=== PATIENT | male | born 1930 | race Caucasian/White ===

== ENCOUNTER 2021-09-15 09:55 | Inpatient (IN) | payer OTHER ==
[~2021-09-15] VITALS: Ht 182.9 cm; Wt 68.9 kg
[2021-09-15 15:09] VITALS: BP_SYST 158
--- NOTE | 2021-09-15 15:55 | NUR ---
CONSULTATION PAGED/CALLED Reason for Consultation: [] ANEMIA Person Who was Notified: [] DR MILLER Consulting Physician: [] DR MILLER Assembler Unit Specialty: [] ONCO/BAKARI Ordering Physician: [] DR ENCARNACION
[2021-09-15 16:08] LABS: BASOPHILS % (AUTO) 0.4 % (0.0-2.0); EOSINOPHILS # (AUTO) 0.1 K/uL (0.0-0.4); EOSINOPHILS % (AUTO) 1.3 % (0.0-4.0); MEAN CORPUSCULAR HEMOGLOBIN 29 pg (27-31); MEAN CORPUSCULAR HGB CONC 33 % (32-36); MEAN CORPUSCULAR VOLUME 88 fL (79.0-98.0); MONOCYTES # (AUTO) 0.8 K/uL (0.0-1.0); MONOCYTES % (AUTO) 16.2 % (1.7-9.3); NEUTROPHILS # (AUTO) 3.3 K/uL (1.8-7.7); NEUTROPHILS % (AUTO) 63.1 % (40.0-70.0); PLATELET COUNT (AUTO) 145 K/uL (130-430); RED CELL DISTRIBUTION WIDTH 20.4 % (9.0-15.0); WHITE BLOOD COUNT (AUTO) 5.2 K/uL (4.8-10.8)
[2021-09-15 16:17] LABS: RED BLOOD CELL COUNT(AUTO) 1.92 MIL/uL (4.2-6.2)
[2021-09-15 16:18] LABS: HEMATOCRIT 16.9 % (36-54); HEMOGLOBIN 5.6 g/dL (14.0-18.0)
[2021-09-15 16:19] LABS: ANION GAP 8 (5-15); CALCIUM 8.7 mg/dL (8.4-11.0); CHLORIDE 109 mmol/L (98-107); CREATININE 2.41 mg/dL (0.55-1.30); GLUCOSE 146 mg/dL (70-99); POTASSIUM 4.5 mmol/L (3.5-5.1); SODIUM SERUM 143 mmol/L (136-145); UREA NITROGEN, BLOOD 76 mg/dL (8-21)
[2021-09-15] MEDS ORDERED: ACETAMINOPHEN 325 MG TABLET PO PRN (16:30)
--- NOTE | 2021-09-15 18:18 | NUR ---
ADMISSION: The patient, BAM WILEY, 89 y/o, M admitted by Mariusz ENCARNACION MD, was given written information regarding hospital policies, unit procedures and contact persons. Valuables were checked and PLACED AT BEDSIDE DRAWER. .
[2021-09-15] MEDS ORDERED: FURO-149 PO (19:07)
[2021-09-15] MEDS ORDERED: SIMV20TA2 PO (19:07)
[2021-09-15] MEDS ORDERED: MECO10005 PO (19:07)
[2021-09-15] MEDS ORDERED: ALLO100T PO (19:07)
[2021-09-15] MEDS ORDERED: POTA-197 PO (19:07)
[2021-09-15] MEDS ORDERED: SITA25TA3 PO (19:07)
[2021-09-15] MEDS ORDERED: ISOS30TA85 PO (19:07)
[2021-09-15] MEDS ORDERED: TAMS-11 PO (19:07)
[2021-09-15] MEDS ORDERED: SODI325T PO (19:07)
[2021-09-15] MEDS ORDERED: HYDR-4037 PO (19:07)
[2021-09-15] MEDS ORDERED: LOSA50TA3 PO (19:07)
[2021-09-15] MEDS ORDERED: FINA5TAB11 PO (19:07)
[2021-09-15] MEDS ORDERED: RIVA10TA PO (19:07)
[2021-09-15] MEDS ORDERED: ASPI-1393 PO (19:07)
[2021-09-15] MEDS ORDERED: COR3.125 PO (19:07)
--- NOTE | 2021-09-15 19:27 | NUR ---
TELEPHONE ORDER RECEIVED FROM ELIANE ADAIR, MEDICATION RECONCILIATION DONE.
--- NOTE | 2021-09-15 19:30 | NUR ---
RCEIVED REPORT ON PATIENT FROM MAR, RN, ASSUMED CARE AND STARTED ASSESSMENT.
--- NOTE | 2021-09-15 19:30 | NUR ---
ENDORSED TO SPORTS COORDINATOR NURSE, 2 UNITS OF BLOOD PRODUCT IS READY TO BE TRANSFUSE.
[2021-09-15 20:00] VITALS: BP_SYST 155
[2021-09-15] MEDS: LOSARTAN POTASSIUM 50 MG TABLET (COZAAR) PO SCH (21:00)
[2021-09-15] MEDS: SIMVASTATIN 20 MG TABLET PO SCH (22:31)
[2021-09-15] MEDS: ISOSORBIDE MONONITRATE 30 MG TAB.ER.24H PO SCH (22:31)
[2021-09-15] MEDS: hydrALAZINE HCL 10 MG TABLET PO SCH (22:32)
[2021-09-15] MEDS: CARVEDILOL 3.125 MG TABLET (COREG) PO SCH (22:33)
[2021-09-15] MEDS: TAMSULOSIN HCL 0.4 MG CAP PO SCH (22:34)
--- NOTE | 2021-09-16 01:15 | NUR ---
STARTED TO TRANSFUSE ONE UNIT OF PRBCS. STAYED WITH PT FOR 15 AT THE BEDSIDE TO ASSURE NO IMMEDIATE REACTION. NO INITIAL REACTION NOTED. WILL CONTINUE TO MONITOR AND ASSESS FOR SAFETY AND COMFORT.
--- NOTE | 2021-09-16 04:25 | NUR ---
COMPLETED TRANSFUSING ONE UNIT PRBC'S WITHOUT INCIDENT OR REACTION. WILL CONTINUE TO MONITOR AND ASSESS FOR SAFETY AND COMFORT.
[2021-09-16 06:49] LABS: INR 1.2 (0.80-1.20); PROTHROMBIN TIME 11.6 SECS (9.5-12.5)
[2021-09-16 07:07] LABS: ANION GAP 7 (5-15); CALCIUM 8.3 mg/dL (8.4-11.0); CHLORIDE 110 mmol/L (98-107); CREATININE 2.17 mg/dL (0.55-1.30); GLUCOSE 108 mg/dL (70-99); POTASSIUM 4.3 mmol/L (3.5-5.1); SODIUM SERUM 142 mmol/L (136-145); UREA NITROGEN, BLOOD 70 mg/dL (8-21)
--- NOTE | 2021-09-16 07:13 | NUR ---
REPORT GIVEN TO ARIN MCKEON, AND CARE WAS TURNED OVER TO HIM.
[2021-09-16 08:00] VITALS: BP_SYST 185
[2021-09-16 08:02] LABS: BASOPHILS % (AUTO) 0.5 % (0.0-2.0); EOSINOPHILS # (AUTO) 0.1 K/uL (0.0-0.4); LYMPHOCYTES % (AUTO) 21.8 % (20.5-51.5); MEAN CORPUSCULAR HEMOGLOBIN 29 pg (27-31); MEAN CORPUSCULAR HGB CONC 34 % (32-36); MEAN CORPUSCULAR VOLUME 86 fL (79.0-98.0); MONOCYTES # (AUTO) 0.7 K/uL (0.0-1.0); MONOCYTES % (AUTO) 15.4 % (1.7-9.3); NEUTROPHILS # (AUTO) 2.8 K/uL (1.8-7.7); NEUTROPHILS % (AUTO) 60.3 % (40.0-70.0); PLATELET COUNT (AUTO) 128 K/uL (130-430); RED BLOOD CELL COUNT(AUTO) 2.11 MIL/uL (4.2-6.2); WHITE BLOOD COUNT (AUTO) 4.7 K/uL (4.8-10.8)
[2021-09-16 08:39] LABS: HEMATOCRIT 18.1 % (36-54); HEMOGLOBIN 6.1 g/dL (14.0-18.0)
[2021-09-16 08:41] LABS: RED CELL DISTRIBUTION WIDTH 20.5 % (9.0-15.0)
--- NOTE | 2021-09-16 08:42 | NUR ---
PAGED PAGED NESSA ALCALA AT [phone] SPOKE WITH KEIKO.
[2021-09-16] MEDS: POTASSIUM CHLORIDE 10 MEQ TAB.PRT.SR PO SCH (11:41)
[2021-09-16] MEDS: CARVEDILOL 3.125 MG TABLET (COREG) PO SCH ×2 (11:41→21:00)
[2021-09-16] MEDS: ALLOPURINOL 100 MG TABLET (ZYLOPRIM) PO SCH (11:42)
[2021-09-16] MEDS: FUROSEMIDE 40 MG TABLET PO SCH (11:42)
[2021-09-16] MEDS: FINASTERIDE 5 MG TABLET (PROSCAR) PO SCH (11:42)
[2021-09-16] MEDS: ASPIRIN 81 MG TABLET(ECOTRIN) PO SCH (11:43)
[2021-09-16] MEDS: LOSARTAN POTASSIUM 50 MG TABLET (COZAAR) PO SCH ×2 (11:50→21:29)
[2021-09-16] MEDS: hydrALAZINE HCL 10 MG TABLET PO SCH ×3 (11:51→21:28)
[2021-09-16 12:00] VITALS: BP_SYST 150
[2021-09-16] MEDS ORDERED: EPOETIN ALFA-EPBX 20,000 UNITS/ML VIAL SUBCUT ONE (12:45)
[2021-09-16] MEDS: SODIUM BICARBONATE 650 MG TABLET PO SCH ×2 (14:25→21:28)
[2021-09-16 16:00] VITALS: BP_SYST 165
[2021-09-16] MEDS ORDERED: FOLIC ACID 1 MG TABLET PO ONE (17:00)
[2021-09-16] MEDS ORDERED: SOD FERRIC GLUC COMPLEX/SUC 125 MG in NS 100 ML IV SCH (18:00)
[2021-09-16 20:00] VITALS: BP_SYST 183
[2021-09-16] MEDS: SIMVASTATIN 20 MG TABLET PO SCH (21:28)
[2021-09-16] MEDS: ISOSORBIDE MONONITRATE 30 MG TAB.ER.24H PO SCH (21:28)
[2021-09-16] MEDS: TAMSULOSIN HCL 0.4 MG CAP PO SCH (21:29)
[2021-09-17] VITALS: BP_SYST 165
[2021-09-17] MEDS ORDERED: hydrALAZINE HCL 20 MG/ML VIAL IVP PRN (01:15)
--- NOTE | 2021-09-17 01:43 | NUR ---
PT STARTED ON BLOOD TRANSFUSION, DENIES ANY PAIN, NO S/S OF DISTRESS OR DISCOMFORT NOTED, NO ADVERSE REACTION NOTED, WILL CONTINUE TO MONITOR.
[2021-09-17 04:00] VITALS: BP_SYST 150
[2021-09-17 06:44] LABS: BASOPHILS % (AUTO) 0.3 % (0.0-2.0); EOSINOPHILS % (AUTO) 0.7 % (0.0-4.0); HEMATOCRIT 23.4 % (36-54); LYMPHOCYTES # (AUTO) 0.8 K/uL (1.0-5.5); LYMPHOCYTES % (AUTO) 11.8 % (20.5-51.5); MEAN CORPUSCULAR HEMOGLOBIN 29 pg (27-31); MEAN CORPUSCULAR HGB CONC 34 % (32-36); MEAN CORPUSCULAR VOLUME 85 fL (79.0-98.0); MONOCYTES # (AUTO) 0.9 K/uL (0.0-1.0); MONOCYTES % (AUTO) 12.6 % (1.7-9.3); NEUTROPHILS # (AUTO) 5.1 K/uL (1.8-7.7); NEUTROPHILS % (AUTO) 74.6 % (40.0-70.0); PLATELET COUNT (AUTO) 138 K/uL (130-430); RED BLOOD CELL COUNT(AUTO) 2.76 MIL/uL (4.2-6.2); RED CELL DISTRIBUTION WIDTH 20.1 % (9.0-15.0); RETICULOCYTE COUNT 1.2 % (0.5-1.5); WHITE BLOOD COUNT (AUTO) 6.8 K/uL (4.8-10.8)
[2021-09-17 07:06] LABS: TOTAL IRON BIND. CAPACITY 270 ug/dL (250-450)
--- NOTE | 2021-09-17 07:10 | NUR ---
OPENING NOTE RECEIVED PATIENT IN BED, RESPIRATIONS EVEN, NON LABORED, BED IN LOW AND LOCKED POSITION, CALL LIGHT WITHIN REACH, BED ALARM ON.
[2021-09-17 07:13] LABS: ANION GAP 9 (5-15); CALCIUM 8.7 mg/dL (8.4-11.0); CHLORIDE 108 mmol/L (98-107); CREATININE 2.15 mg/dL (0.55-1.30); GLUCOSE 122 mg/dL (70-99); POTASSIUM 4.2 mmol/L (3.5-5.1); SODIUM SERUM 141 mmol/L (136-145); UREA NITROGEN, BLOOD 62 mg/dL (8-21)
[2021-09-17 08:00] VITALS: BP_SYST 164
[2021-09-17] MEDS ORDERED: FOLIC ACID 1 MG TABLET PO SCH (09:00)
[2021-09-17] MEDS: ALLOPURINOL 100 MG TABLET (ZYLOPRIM) PO SCH (09:49)
[2021-09-17] MEDS: LOSARTAN POTASSIUM 50 MG TABLET (COZAAR) PO SCH (09:50)
[2021-09-17] MEDS: FINASTERIDE 5 MG TABLET (PROSCAR) PO SCH (09:50)
--- NOTE | 2021-09-17 09:50 | NUR ---
NURSE NOTES PROVIDED MEDICATIONS, PATIENT DENIES ANY PAIN OR DISCOMFORT.
[2021-09-17] MEDS: ASPIRIN 81 MG TABLET(ECOTRIN) PO SCH (09:51)
[2021-09-17] MEDS: POTASSIUM CHLORIDE 10 MEQ TAB.PRT.SR PO SCH (09:51)
[2021-09-17] MEDS: SODIUM BICARBONATE 650 MG TABLET PO SCH (09:51)
[2021-09-17] MEDS: hydrALAZINE HCL 10 MG TABLET PO SCH (09:52)
[2021-09-17] MEDS: CARVEDILOL 3.125 MG TABLET (COREG) PO SCH (09:52)
[2021-09-17] MEDS: FUROSEMIDE 40 MG TABLET PO SCH (09:53)
[2021-09-17 12:00] VITALS: BP_SYST 123; BP_SYST 150
--- NOTE | 2021-09-17 12:00 | NUR ---
NURSE NOTE PATIENT IN BED, RESPIRATIONS EVEN, NON LABORED, BED IN LOW AND LOCKED POSITION CALL LIGHT WITHIN REACH, PROVIDED LUNCH
[2021-09-17 12:13] VITALS: BP_SYST 123
--- NOTE | 2021-09-17 13:15 | NUR ---
D/C Patient Patient given medication reconciliation form and D/C instructions. Exit Care provided. Patient verbalized understanding. MD discussed with patient the results and treatment provided. Ambulatory with steady gait for discharge to home. Patient in stable condition, ID band removed. IV catheter removed, intact and dressing applied, no active bleeding. Patient educated on pain management. All belongings sent with patient. Patient taken via wheelchair to awaiting car
[2021-09-18 08:06] LABS: FOLATE (FOLIC ACID) 15.8 ng/mL (>3.0)
== END 2021-09-17 13:15 | disposition home or self-care (01) | DRG 812 ==
LOC: SMU 13:58
PROVIDERS: ADMIT Internal Medicine; ATTEND Internal Medicine
PROC: 30233N1 Transfusion of Nonautologous Red Blood Cells into Peripheral Vein, Percutaneous Approach (ICD-10-PCS; principal; 2021-09-16)
DX: D64.9 Anemia, unspecified (principal); N18.32 Chronic kidney disease, stage 3b; Z79.899 Other long term (current) drug therapy; Z79.82 Long term (current) use of aspirin
CPT/HCPCS: 36415; 80048; 82607; 82728; 82746; 82962; 83540; 83550; 85025; 85044; 85610-TC; 85730-TC; 86886; 86900; 86901; 86920; J0360; J2916; P9021; Q5106

== ENCOUNTER 2022-04-23 13:14 | Inpatient (IN) | payer OTHER ==
[~2022-04-23] VITALS: Ht 182.9 cm; Wt 68.9 kg
[~2022-04-23 13:14] MED LIST: ALLO100T PO; ASPI-1393 PO; COR3.125 PO; FINA5TAB11 PO; FURO-149 PO; HYDR-4037 PO; ISOS30TA85 PO; LOSA50TA3 PO; MECO10005 PO; POTA-197 PO; RIVA10TA PO; SIMV-343 PO; SITA25TA3 PO; SODI325T PO; TAMS-11 PO
[2022-04-23 13:18] VITALS: BP_SYST 160
--- NOTE | 2022-04-23 13:53 | NUR ---
covid swab collected
[2022-04-23 14:16] LABS: ANION GAP 10 (5-15); BASOPHILS % (AUTO) 0.7 % (0.0-2.0); CALCIUM 8.6 mg/dL (8.4-11.0); CHLORIDE 111 mmol/L (98-107); CREATININE 2.65 mg/dL (0.55-1.30); EOSINOPHILS # (AUTO) 0.1 K/uL (0.0-0.4); EOSINOPHILS % (AUTO) 1.2 % (0.0-4.0); GLUCOSE 128 mg/dL (70-99); HEMATOCRIT 23.4 % (36-54); HEMOGLOBIN 7.5 g/dL (14.0-18.0); LYMPHOCYTES # (AUTO) 0.7 K/uL (1.0-5.5); LYMPHOCYTES % (AUTO) 14.2 % (20.5-51.5); MEAN CORPUSCULAR HEMOGLOBIN 29 pg (27-31); MEAN CORPUSCULAR HGB CONC 32 % (32-36); MEAN CORPUSCULAR VOLUME 90 fL (79.0-98.0); MONOCYTES # (AUTO) 0.7 K/uL (0.0-1.0); MONOCYTES % (AUTO) 13.3 % (1.7-9.3); NEUTROPHILS # (AUTO) 3.6 K/uL (1.8-7.7); NEUTROPHILS % (AUTO) 70.6 % (40.0-70.0); PLATELET COUNT (AUTO) 179 K/uL (130-430); RED BLOOD CELL COUNT(AUTO) 2.61 MIL/uL (4.2-6.2); RED CELL DISTRIBUTION WIDTH 16.2 % (9.0-15.0); UREA NITROGEN, BLOOD 80 mg/dL (8-21)
[2022-04-23 14:21] LABS: ALANINE AMINOTRANSFERASE 23 U/L (12-78); ALBUMIN 2.7 g/dL (3.4-4.8); ASPARTATE AMINOTRANSFERASE 26 U/L (10-37); TOTAL BILIRUBIN 0.3 mg/dL (0.0-1.0)
--- NOTE | 2022-04-23 14:27 | NUR ---
Patient to ER bed 08 to gown for evaluation. Side rails up. Report given to Vito HINKLE .
[2022-04-23 15:01] LABS: AMYLASE 37 U/L (0-100); LIPASE 195 U/L (73-393)
--- NOTE | 2022-04-23 16:03 | NUR ---
Took over pts care. Pt alert and oriented x4, VSS, no signs of acute distress. Cardiogist at bedside speaking with pt and daughter.
[2022-04-23 16:17] LABS: INR 1.2 (0.80-1.20); PROTHROMBIN TIME 11.7 SECS (9.5-12.5)
[2022-04-23] MEDS ORDERED: NACL 0.9% 1,000 ML IV ONE (16:45)
--- NOTE | 2022-04-23 23:34 | NUR ---
Admission Note Received patient from ER with diagnosis of PNA, RENAL FAILURE. Initial Plan of Care discussed-patient verbalized understanding. Oriented to room, call light, pain management and safety.
--- NOTE | 2022-04-23 23:46 | NUR ---
Patient will be admitted to care of NIKKI HINKLE. Admitted to unit. Will go to room 104A. Belongings list completed. Complete and up to date summary report printed. SBAR report to be given at bedside with opportunity for questions.
[2022-04-23 23:55] VITALS: BP_SYST 173
[2022-04-24] MEDS ORDERED: hydrALAZINE HCL 20 MG/ML VIAL IVP PRN (01:00)
[2022-04-24 01:19] LABS: BILIRUBIN,URINE NEGATIVE (NEGATIVE); CLARITY/URINE CLEAR (CLEAR); COLOR,URINE YELLOW (YELLOW); GLUCOSE,URINE NEGATIVE (NEGATIVE); KETONES,URINE NEGATIVE (NEGATIVE); LEUKOCYTE ESTERASE ,URINE NEGATIVE (NEGATIVE); NITRITE, URINE NEGATIVE (NEGATIVE); PROTEIN URINE 3+ (NEGATIVE); UROBILINOGEN,URINE 0.2 (0.2-1.0)
--- NOTE | 2022-04-24 01:30 | NUR ---
BLOOD TRANSFUSION INITIATED BLOOD TRANSFUSION AT THIS TIME. WILL MONITOR.
[2022-04-24 01:38] LABS: BLOOD, URINE TRACE (NEGATIVE)
[2022-04-24 01:42] LABS: BACTERIA,URINE FEW /HPF (None Seen); MUCUS,URINE None Seen /LPF (None Seen); URINE SULFO SALICYLIC ACID TRACE (NEGATIVE); WBC,URINE 0-3 /HPF (0-3)
--- NOTE | 2022-04-24 04:30 | NUR ---
BLOOD TRANSFUSION FINISHED PATIENT TOLERATED WELL. NO SIGNS OF ADVERSE REACTIONS. ALL NEEDS MET. WILL MONITOR.
[2022-04-24 05:00] VITALS: BP_SYST 158
--- NOTE | 2022-04-24 06:26 | NUR ---
CLOSING NOTE PATIENT ON CHAIR BY BEDSIDE. NO S/S OF ACUTE DISTRESS. BREATHING EVEN AND UNLABORED. IV SITE PATENT, NO SIGNS OF INFILTRATION OR INFECTION NOTED. ALL NEEDS MET THROUGHOUT SHIFT. FALL, SAFETY PRECAUTIONS MAINTAINED THROUGHOUT SHIFT. WILL CONTINUE TO MONITOR UNTIL PATIENT CARE IS ENDORSED TO ONCOMING DAYSHIFT NURSE.
[2022-04-24 07:53] VITALS: BP_SYST 156
[2022-04-24 08:02] LABS: ALANINE AMINOTRANSFERASE 29 U/L (12-78); ALBUMIN 2.4 g/dL (3.4-4.8); ANION GAP 13 (5-15); ASPARTATE AMINOTRANSFERASE 25 U/L (10-37); CALCIUM 8.7 mg/dL (8.4-11.0); CHLORIDE 112 mmol/L (98-107); CREATININE 2.57 mg/dL (0.55-1.30); GLUCOSE 117 mg/dL (70-99); TOTAL BILIRUBIN 0.6 mg/dL (0.0-1.0); UREA NITROGEN, BLOOD 78 mg/dL (8-21)
[2022-04-24 08:09] LABS: BASOPHILS % (AUTO) 0.5 % (0.0-2.0); EOSINOPHILS % (AUTO) 0.8 % (0.0-4.0); HEMOGLOBIN 9.3 g/dL (14.0-18.0); LYMPHOCYTES # (AUTO) 0.6 K/uL (1.0-5.5); LYMPHOCYTES % (AUTO) 12.7 % (20.5-51.5); MEAN CORPUSCULAR HEMOGLOBIN 29 pg (27-31); MEAN CORPUSCULAR HGB CONC 33 % (32-36); MEAN CORPUSCULAR VOLUME 88 fL (79.0-98.0); MONOCYTES # (AUTO) 0.7 K/uL (0.0-1.0); MONOCYTES % (AUTO) 14.3 % (1.7-9.3); NEUTROPHILS # (AUTO) 3.7 K/uL (1.8-7.7); NEUTROPHILS % (AUTO) 71.7 % (40.0-70.0); PLATELET COUNT (AUTO) 165 K/uL (130-430); RED BLOOD CELL COUNT(AUTO) 3.17 MIL/uL (4.2-6.2); RED CELL DISTRIBUTION WIDTH 15.6 % (9.0-15.0); WHITE BLOOD COUNT (AUTO) 5.1 K/uL (4.8-10.8)
[2022-04-24 11:35] VITALS: BP_SYST 155
--- NOTE | 2022-04-24 13:00 | NUR ---
DR Aston MILLER WAS HERE, REMINDED OF THE PT'S ADMISSION. SAID HE WILL LOOK AT IT.
--- NOTE | 2022-04-24 15:15 | NUR ---
CALLED DR MILLER. REMINDED MD TO DO MED REC AND TO CHECK IF PT NEEDS ABX.
[2022-04-24 15:27] VITALS: BP_SYST 151
[2022-04-24] MEDS ORDERED: CARVEDILOL 3.125 MG TABLET (COREG) PO ONE (15:30)
[2022-04-24] MEDS ORDERED: ASPIRIN 81 MG TABLET(ECOTRIN) PO ONE (15:30)
[2022-04-24] MEDS ORDERED: LOSARTAN POTASSIUM 50 MG TABLET (COZAAR) PO ONE (15:45)
[2022-04-24] MEDS ORDERED: hydrALAZINE HCL 10 MG TABLET PO ONE (15:45)
[2022-04-24] MEDS ORDERED: ALLOPURINOL 100 MG TABLET (ZYLOPRIM) PO ONE (15:45)
[2022-04-24] MEDS ORDERED: RIVAROXABAN 10 MG TABLET PO ONE (15:45)
[2022-04-24] MEDS ORDERED: FINASTERIDE 5 MG TABLET (PROSCAR) PO ONE (15:45)
--- NOTE | 2022-04-24 15:49 | NUR ---
CONSULTATION PAGED/CALLED Reason for Consultation: cards Person Who was Notified: Ca Traore Consulting Physician: gautam delacruz Ordering Physician: froylan shipley
--- NOTE | 2022-04-24 16:12 | NUR ---
CONSULTATION PAGED/CALLED Reason for Consultation: ID Person Who was Notified: Emil Consulting Physician: giorgio garay Ordering Physician: froylan shipley
--- NOTE | 2022-04-24 16:13 | NUR ---
CONSULTATION PAGED/CALLED Reason for Consultation: pulm Person Who was Notified: malina Consulting Physician: shyanne lebron ( dr Sampson is covering) Ordering Physician: froylan shipley
[2022-04-24] MEDS ORDERED: FUROSEMIDE 40 MG/4 ML VIAL IVP ONE (18:15)
[2022-04-24] MEDS: cefTRIAXone 1 GM in D5W 50 ML IV SCH (18:25)
--- NOTE | 2022-04-24 18:55 | NUR ---
PM MEDS ALL GIVEN,ASSISTED PT WITH DINNER AT ABT 50%. IV ABX STARTED.
--- NOTE | 2022-04-24 19:21 | NUR ---
pt has been stable the whole shift, no fever, no resp distress no c/o pain. home meds reconcile by md, abx and lasix given. endorsed to night nurse.
--- NOTE | 2022-04-24 19:21 | NUR ---
OPENING NOTE REPORT RECEIVED FROM DAYSUTFT NURSE. PATIENT RECEIVED LYING IN BED, AWAKE, NO S/S OF ACUTE DISTRESS. BREATHING EVEN AND UNLABORED. HOB RAISED, NASAL CANULA ATTACHED PROPERLY, ON 2L OF OXYGEN. IV SITE PATENT, NO SIGNS OF INFILTRATION OR INFECTION NOTED. [place] ATTACHED, SECURED, AND DRAINING BY GRAVITY. CALL LIGHT WITH PATIENT. BED ALARM ON. BED IS LOCKED AND AT LOWEST POSITION. WILL CONTINUE TO MONITOR.
[2022-04-24 20:00] VITALS: BP_SYST 151
[2022-04-24] MEDS: ISOSORBIDE MONONITRATE 30 MG TAB.ER.24H PO SCH (20:14)
[2022-04-24] MEDS: hydrALAZINE HCL 10 MG TABLET PO SCH (20:14)
[2022-04-24] MEDS: CARVEDILOL 3.125 MG TABLET (COREG) PO SCH (20:14)
[2022-04-24] MEDS: TAMSULOSIN HCL 0.4 MG CAP PO SCH (20:15)
[2022-04-24] MEDS: LOSARTAN POTASSIUM 50 MG TABLET (COZAAR) PO SCH (20:15)
[2022-04-24] MEDS: RIVAROXABAN 10 MG TABLET PO SCH (20:15)
[2022-04-24] MEDS ORDERED: SIMVASTATIN 20 MG TABLET PO SCH (21:00)
--- NOTE | 2022-04-24 23:00 | NUR ---
ROUNDS PATIENT IN BED, RESTING, NO SIGNS OF DISCOMFORT. CHEST RISE AND FALL EVEN BILATERALLY. CALL LIGHT WITH PATIENT. ALL NEEDS MET. WILL MONITOR.
[2022-04-25 00:35] VITALS: BP_SYST 150
--- NOTE | 2022-04-25 03:00 | NUR ---
ROUNDS NO CHANGE FROM PREVIOUS. ALL NEEDS MET. WILL MONITOR.
--- NOTE | 2022-04-25 06:11 | NUR ---
CLOSING NOTE PATIENT IN BED, RESTING. NO S/S OF ACUTE DISTRESS NOTED. BREATHING EVEN AND UNLABORED. HOB RAISED, NASAL CANULA ATTACHED PROPERLY, ON 2L OF OXYGEN. IV SITE PATENT, NO SIGNS OF INFILTRATION OR INFECTION NOTED. [place] ATTACHED, SECURED AND DRAINING BY GRAVITY. ALL NEEDS MET THROUGHOUT SHIFT. FALL, SAFETY PRECAUTIONS MAINTAINED THROUGHOUT SHIFT. WILL CONTINUE TO MONITOR UNTIL PATIENT CARE IS ENDORSED TO ONCOMING DAYSHIFT NURSE.
[2022-04-25 06:31] LABS: BASOPHILS % (AUTO) 0.5 % (0.0-2.0); EOSINOPHILS # (AUTO) 0.1 K/uL (0.0-0.4); HEMATOCRIT 25.2 % (36-54); HEMOGLOBIN 8.4 g/dL (14.0-18.0); LYMPHOCYTES # (AUTO) 0.8 K/uL (1.0-5.5); MEAN CORPUSCULAR HEMOGLOBIN 29 pg (27-31); MEAN CORPUSCULAR HGB CONC 33 % (32-36); MEAN CORPUSCULAR VOLUME 88 fL (79.0-98.0); MONOCYTES # (AUTO) 0.9 K/uL (0.0-1.0); MONOCYTES % (AUTO) 16.1 % (1.7-9.3); NEUTROPHILS # (AUTO) 3.6 K/uL (1.8-7.7); NEUTROPHILS % (AUTO) 66.4 % (40.0-70.0); PLATELET COUNT (AUTO) 147 K/uL (130-430); RED BLOOD CELL COUNT(AUTO) 2.88 MIL/uL (4.2-6.2); RED CELL DISTRIBUTION WIDTH 15.7 % (9.0-15.0); WHITE BLOOD COUNT (AUTO) 5.3 K/uL (4.8-10.8)
[2022-04-25 07:35] VITALS: BP_SYST 154
--- NOTE | 2022-04-25 07:35 | NUR ---
OPENING NOTE Patient resting in bed. A/O x 4, Kazakh speaking. Patient Breathing even and unlabored on oxygen 2lp. No pain, no distress, no SOB noted. Able to ambulate with assist and has sams draining yellow urine to gravity. Patient instructed to call for help when needed. Patient on regular diet. Patient has IV to LAC 22G on SL. Bed is locked in lowest position. Call light within reach, all needs met, will continue to monitor.
[2022-04-25 07:36] LABS: ALANINE AMINOTRANSFERASE 25 U/L (12-78); ALBUMIN 2.1 g/dL (3.4-4.8); ANION GAP 11 (5-15); ASPARTATE AMINOTRANSFERASE 13 U/L (10-37); CALCIUM 8.2 mg/dL (8.4-11.0); CHLORIDE 112 mmol/L (98-107); CREATININE 2.52 mg/dL (0.55-1.30); GLUCOSE 116 mg/dL (70-99); TOTAL BILIRUBIN 0.3 mg/dL (0.0-1.0); UREA NITROGEN, BLOOD 76 mg/dL (8-21)
[2022-04-25] MEDS: ALLOPURINOL 100 MG TABLET (ZYLOPRIM) PO SCH (08:16)
[2022-04-25] MEDS: SODIUM BICARBONATE 650 MG TABLET PO SCH (08:17)
[2022-04-25] MEDS: FINASTERIDE 5 MG TABLET (PROSCAR) PO SCH (08:17)
[2022-04-25] MEDS: LOSARTAN POTASSIUM 50 MG TABLET (COZAAR) PO SCH ×2 (08:17→20:31)
[2022-04-25] MEDS: hydrALAZINE HCL 10 MG TABLET PO SCH ×3 (08:18→20:32)
[2022-04-25] MEDS: CARVEDILOL 3.125 MG TABLET (COREG) PO SCH (08:18)
[2022-04-25] MEDS: ASPIRIN 81 MG TABLET(ECOTRIN) PO SCH (08:18)
[2022-04-25] MEDS: RIVAROXABAN 10 MG TABLET PO SCH ×2 (08:20→20:29)
--- NOTE | 2022-04-25 08:21 | NUR ---
MEDICATION XARELTO Patient refused xarelto this morning. He says he takes baby ASA and Xarelto and refuses to take both. I will report to
[2022-04-25] MEDS: FUROSEMIDE 40 MG/4 ML VIAL IVP SCH (10:24)
--- NOTE | 2022-04-25 10:40 | NUR ---
IV IV site changed due to it no longer being patent. IV site changed by ARIN Dowling. New site: L upper arm 20g. Patent on SL.
--- NOTE | 2022-04-25 11:00 | NUR ---
aSde Carty made aware of Xarelto being refused by patient. TRANSFER AGENT stated ok.
--- NOTE | 2022-04-25 11:10 | NUR ---
UA Culture UA culture collected and given to technical business analyst for processing.
[2022-04-25 11:25] VITALS: BP_SYST 144
--- NOTE | 2022-04-25 12:05 | NUR ---
Rounds: Patient resting in bed. Patient Breathing even and unlabored on oxygen 2lp. No pain, no distress, no SOB noted. sams draining yellow urine to gravity. Bed is locked in lowest position. Call light within reach, all needs met, will continue to monitor.
--- NOTE | 2022-04-25 13:02 | NUR ---
Breathing treatments. MD Todd ordered new Bx tx per MIKEY Carty's recommendations.
--- NOTE | 2022-04-25 13:04 | NUR ---
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 Thanks! Addendum: 04/25/22 at [address] Amended: Links added.
--- NOTE | 2022-04-25 13:37 | NUR ---
CONSULT SWALLOW EVYURY CALLED PT THEY WILL INFORM KANDY OF CONSULT
--- NOTE | 2022-04-25 14:10 | NUR ---
PATIENT'S DAUGHTER CALL Received a call from patients daughter asking for a update. Update given and daughter stated she will be coming by during dinner time to help patient with any needs.
[2022-04-25] MEDS: IPRATROPIUM/ALBUTEROL SULFATE 3 ML AMPUL.NEB (DUONEB) INH SCH ×2 (14:59→19:59)
[2022-04-25] MEDS ORDERED: DIGOXIN 0.5 MG/2 ML AMP IVP ONE ×2 (15:30→16:15)
[2022-04-25 15:37] VITALS: BP_SYST 144
--- NOTE | 2022-04-25 16:03 | NUR ---
DIGOXIN Spoke with MKIEY Carty regarding Digoxin medication. I explained his Pulse ranges from 50-61 beats per min. stated he will put perameters on the dosage and he is aware that we are holding the medication right now.
--- NOTE | 2022-04-25 16:05 | NUR ---
Rounds: Patient resting in bed with family at bedside. Patient Breathing even and unlabored on oxygen 2lp. No pain, no distress, no SOB noted. sams draining yellow urine to gravity. Bed is locked in lowest position. Call light within reach, all needs met, will continue to monitor.
--- NOTE | 2022-04-25 16:10 | NUR ---
ST EVALUATION COMPLETED. ST TX NOT INDICATED AT THIS TIME. RECOMMEND CONTINUE CURRENT DIET. PT APPEARS TO HAVE A SAFE AND EFFECTIVE SWALLOW FOR PO INTAKE. PT WILL BENEFIT FROM SET-UP DUE TO POOR VISION.
[2022-04-25] MEDS: cefTRIAXone 1 GM in D5W 50 ML IV SCH (17:45)
--- NOTE | 2022-04-25 18:34 | NUR ---
MD MILLER Spoke with Md Miller regarding PT order and he said ok to have PT evaluate patient tomorrow.
[2022-04-25 20:11] VITALS: BP_SYST 126
[2022-04-25] MEDS: ATORVASTATIN 20 MG TABLET PO SCH (20:30)
[2022-04-25] MEDS: TAMSULOSIN HCL 0.4 MG CAP PO SCH (20:31)
[2022-04-25] MEDS: ISOSORBIDE MONONITRATE 30 MG TAB.ER.24H PO SCH (20:31)
[2022-04-25] MEDS: CARVEDILOL 6.25 MG TABLET (COREG) PO SCH (20:33)
[2022-04-25 22:29] VITALS: BP_SYST 128
[2022-04-26] VITALS (7 sets, daily range): BP systolic 148–173
[2022-04-26] MEDS: IPRATROPIUM/ALBUTEROL SULFATE 3 ML AMPUL.NEB (DUONEB) INH SCH ×8 (02:24→23:00)
--- NOTE | 2022-04-26 07:15 | NUR ---
OPENING NOTE Patient resting in bed. A/O x 4, Kiswahili speaking. Patient Breathing even and unlabored on oxygen 2lp. No pain, no distress, no SOB noted. Able to ambulate with assist and has sams draining yellow urine to gravity. Patient instructed to call for help when needed. Patient on regular diet. Patient has IV to LAC 22G on SL. Bed is locked in lowest position. Call light within reach, all needs met, will continue to monitor. Addendum: 04/26/22 at 0745 by Elise Lomas LVN IV in MARBELLA 20g.
[2022-04-26 07:31] LABS: ALANINE AMINOTRANSFERASE 22 U/L (12-78); ALBUMIN 2.1 g/dL (3.4-4.8); ANION GAP 12 (5-15); ASPARTATE AMINOTRANSFERASE 13 U/L (10-37); CALCIUM 8.3 mg/dL (8.4-11.0); CHLORIDE 109 mmol/L (98-107); CREATININE 2.64 mg/dL (0.55-1.30); GLUCOSE 123 mg/dL (70-99); TOTAL BILIRUBIN 0.3 mg/dL (0.0-1.0); UREA NITROGEN, BLOOD 79 mg/dL (8-21)
[2022-04-26] MEDS: SODIUM BICARBONATE 650 MG TABLET PO SCH (08:34)
[2022-04-26] MEDS: hydrALAZINE HCL 10 MG TABLET PO SCH ×3 (08:35→21:49)
[2022-04-26] MEDS: LOSARTAN POTASSIUM 50 MG TABLET (COZAAR) PO SCH ×2 (08:35→21:50)
[2022-04-26] MEDS: FINASTERIDE 5 MG TABLET (PROSCAR) PO SCH (08:35)
[2022-04-26] MEDS: ALLOPURINOL 100 MG TABLET (ZYLOPRIM) PO SCH (08:35)
[2022-04-26] MEDS: ASPIRIN 81 MG TABLET(ECOTRIN) PO SCH (08:35)
[2022-04-26] MEDS: CARVEDILOL 6.25 MG TABLET (COREG) PO SCH (08:36)
[2022-04-26] MEDS: RIVAROXABAN 10 MG TABLET PO SCH ×2 (08:52→21:00)
[2022-04-26 08:59] LABS: EOSINOPHILS # (AUTO) 0.1 K/uL (0.0-0.4); LYMPHOCYTES # (AUTO) 0.7 K/uL (1.0-5.5); MONOCYTES # (AUTO) 0.9 K/uL (0.0-1.0); NEUTROPHILS # (AUTO) 3.3 K/uL (1.8-7.7)
[2022-04-26 09:35] LABS: BASOPHILS % (AUTO) 0.4 % (0.0-2.0); EOSINOPHILS % (AUTO) 2.4 % (0.0-4.0); HEMATOCRIT 27.7 % (36-54); HEMOGLOBIN 9.1 g/dL (14.0-18.0); LYMPHOCYTES % (AUTO) 14.4 % (20.5-51.5); MEAN CORPUSCULAR HEMOGLOBIN 29 pg (27-31); MEAN CORPUSCULAR HGB CONC 33 % (32-36); MEAN CORPUSCULAR VOLUME 89 fL (79.0-98.0); MONOCYTES % (AUTO) 17.3 % (1.7-9.3); NEUTROPHILS % (AUTO) 65.5 % (40.0-70.0); PLATELET COUNT (AUTO) 142 K/uL (130-430); RED BLOOD CELL COUNT(AUTO) 3.12 MIL/uL (4.2-6.2)
[2022-04-26] MEDS: FUROSEMIDE 40 MG/4 ML VIAL IVP SCH (10:39)
--- NOTE | 2022-04-26 12:05 | NUR ---
Rounds: Patient resting in bed with family at bedside. Patient Breathing even and unlabored on oxygen 2lp. No pain, no distress, no SOB noted. Guillaume draining yellow urine to gravity. Bed is locked in lowest position. Call light within reach, all needs met, will continue to monitor.
[2022-04-26 12:09] LABS: DIGOXIN 0.9 ng/mL (0.80-2.00)
--- NOTE | 2022-04-26 18:46 | NUR ---
CLOSING NOTE Patient resting in bed. A/O x 4, Kiswahili speaking. Patient Breathing even and unlabored on oxygen 2lp. No pain, no distress, no SOB noted. Able to ambulate with assist and has Guillaume draining yellow urine to gravity. Patient instructed to call for help when needed. Patient on regular diet. Patient has IV to MARBELLA 20G on SL. Bed is locked in lowest position. Call light within reach, all needs met, will endorse to hourly shift nurse.
[2022-04-26] MEDS: cefTRIAXone 1 GM in D5W 50 ML IV SCH (18:47)
[2022-04-26] MEDS: TAMSULOSIN HCL 0.4 MG CAP PO SCH (21:48)
[2022-04-26] MEDS: ISOSORBIDE MONONITRATE 30 MG TAB.ER.24H PO SCH (21:48)
[2022-04-26] MEDS: CARVEDILOL 12.5 MG TABLET (COREG) PO SCH (21:50)
[2022-04-26] MEDS: ATORVASTATIN 20 MG TABLET PO SCH (21:51)
--- NOTE | 2022-04-26 22:30 | NUR ---
1999 OPENING NOTES: Patient received from AM shift nurse. Patient resting in bed. A/O x 4, Croatian speaking with call light within reach. Patient Breathing even and unlabored on 2L via NC . No s/s of distress is noted and chest rise is even and unlabored. Able to ambulate with assist and has sams draining yellow urine to gravity. Patient has IV to LAC 22G on SL. Bed is locked in lowest position, and safety measures are in place as per protocol. Will continue to monitor. 2229 Patient has been assessed as per protocol scheduled medications have been administered. Patient refused schedule xerelto and education was provided x3. Will continue to monitor.
[2022-04-27 01:17] VITALS: BP_SYST 157
[2022-04-27] MEDS: IPRATROPIUM/ALBUTEROL SULFATE 3 ML AMPUL.NEB (DUONEB) INH SCH ×4 (03:00→15:00)
[2022-04-27 07:04] LABS: BASOPHILS % (AUTO) 0.3 % (0.0-2.0); EOSINOPHILS # (AUTO) 0.2 K/uL (0.0-0.4); EOSINOPHILS % (AUTO) 3.2 % (0.0-4.0); HEMATOCRIT 25.9 % (36-54); HEMOGLOBIN 8.7 g/dL (14.0-18.0); LYMPHOCYTES # (AUTO) 0.6 K/uL (1.0-5.5); LYMPHOCYTES % (AUTO) 10.9 % (20.5-51.5); MEAN CORPUSCULAR HEMOGLOBIN 30 pg (27-31); MEAN CORPUSCULAR HGB CONC 34 % (32-36); MEAN CORPUSCULAR VOLUME 88 fL (79.0-98.0); MONOCYTES # (AUTO) 0.8 K/uL (0.0-1.0); NEUTROPHILS # (AUTO) 3.6 K/uL (1.8-7.7); NEUTROPHILS % (AUTO) 69.6 % (40.0-70.0); PLATELET COUNT (AUTO) 143 K/uL (130-430); RED BLOOD CELL COUNT(AUTO) 2.94 MIL/uL (4.2-6.2); RED CELL DISTRIBUTION WIDTH 15.9 % (9.0-15.0); WHITE BLOOD COUNT (AUTO) 5.1 K/uL (4.8-10.8)
[2022-04-27 07:30] LABS: ALANINE AMINOTRANSFERASE 17 U/L (12-78); ANION GAP 11 (5-15); ASPARTATE AMINOTRANSFERASE 9 U/L (10-37); C-REACTIVE PROTEIN QUANT 1.1 mg/dL (0-0.5); CALCIUM 7.9 mg/dL (8.4-11.0); CHLORIDE 111 mmol/L (98-107); CREATININE 2.39 mg/dL (0.55-1.30); GLUCOSE 122 mg/dL (70-99); PHOSPHORUS 4.3 mg/dL (2.7-4.5); TOTAL BILIRUBIN 0.3 mg/dL (0.0-1.0); UREA NITROGEN, BLOOD 78 mg/dL (8-21)
[2022-04-27 08:00] VITALS: BP_SYST 153
[2022-04-27 08:44] LABS: ERYTHROCYTE SEDIMENTATION RATE 29 MM/HR (0-15)
[2022-04-27] MEDS: CARVEDILOL 12.5 MG TABLET (COREG) PO SCH ×2 (09:36→20:15)
[2022-04-27] MEDS: FUROSEMIDE 40 MG/4 ML VIAL IVP SCH (09:37)
[2022-04-27] MEDS: SODIUM BICARBONATE 650 MG TABLET PO SCH (09:38)
[2022-04-27] MEDS: LOSARTAN POTASSIUM 50 MG TABLET (COZAAR) PO SCH ×2 (09:38→20:16)
[2022-04-27] MEDS: ASPIRIN 81 MG TABLET(ECOTRIN) PO SCH (09:39)
[2022-04-27] MEDS: ALLOPURINOL 100 MG TABLET (ZYLOPRIM) PO SCH (09:39)
[2022-04-27] MEDS: hydrALAZINE HCL 10 MG TABLET PO SCH (09:40)
[2022-04-27] MEDS: RIVAROXABAN 10 MG TABLET PO SCH (09:43)
[2022-04-27] MEDS: FINASTERIDE 5 MG TABLET (PROSCAR) PO SCH (09:44)
--- NOTE | 2022-04-27 11:06 | NUR ---
[facility] CASE MANAGEMENT CALLED JEAN CLAUDE PALACIOS TO INFORM HER THERE IS AN ORDER FOR SNF PLACEMENT FOR IV ABX AND OXYGEN AND PT.
[2022-04-27 12:00] VITALS: BP_SYST 141
[2022-04-27 12:12] LABS: DIGOXIN 0.8 ng/mL (0.80-2.00)
[2022-04-27] MEDS ORDERED: COR12.5 PO (13:44)
[2022-04-27] MEDS ORDERED: LIP20 PO (13:44)
[2022-04-27] MEDS ORDERED: ROCPM1 IV (13:44)
[2022-04-27] MEDS ORDERED: SPIRONOLACTONE 25 MG TABLET (ALDACTONE) PO ONE (14:30)
[2022-04-27 15:00] VITALS: BP_SYST 140
--- NOTE | 2022-04-27 15:08 | NUR ---
[facility]/HCP CM MS SILVERIO GAVE TRANSFER INFO: PT GOING TO [facility], [address]. JUICE WEIGHER TIME IS 1800 BY [facility] ([phone]) [facility] [phone].
--- NOTE | 2022-04-27 15:51 | NUR ---
PHYSICAL THERAPY CO-SIGN The Physical Therapy Progress Notes documented by Physics Tutor have been reviewed. Reviewed/Co-Signed by: Demian Eldridge Documentation Done by:NERISSA SNOW Addendum: 04/27/22 at 1551 by Demian Eldridge PT Amended: Links added.
[2022-04-27 16:53] VITALS: BP_SYST 154
--- NOTE | 2022-04-27 17:57 | NUR ---
CALLED [facility], THEY ARE RUNNING LATE. NEW ETA: [phone]
--- NOTE | 2022-04-27 19:08 | NUR ---
CLOSING NOTE; PT RESTING IN BED BREATHING NON-LABORED AND REGULAR ON 2L VIA NC. DENIES ANY PAIN OR DISCOMFORT. IV SITE REMAIN INTACT AND PATENT. PT WILL BE PICKED UP BY AMBULANCE ANY TIME SOON. PT WILL GO TO THE FACILITY WITH IV. BED IS LOCKED AND AT LOW POSITION. ENCOURAGED TO USE CALL LIGHT FOR ASSISTANCE. WILL ENDORSE TRUCK OPERATOR NURSE FOR THE CONTINUITY OF CARE.
[2022-04-27 20:00] VITALS: BP_SYST 159
[2022-04-27] MEDS ORDERED: hydrALAZINE HCL 25 MG TABLET PO SCH (21:00)
--- NOTE | 2022-04-27 21:00 | NUR ---
pt.transferred to [facility].blood glucose assessed value:306mg/dl.2100pmedications administered.insulin;regular;8-u per sliding scale.b/p medication regimen.v/s assessed p/t transfer/medications administration.family apprised of pt's transfer.day shift tyron conveyed pt's report/data.pt's pertenences accounted for.
[2022-04-28] MEDS ORDERED: SPIRONOLACTONE 25 MG TABLET (ALDACTONE) PO SCH (09:00)
== END 2022-04-27 19:48 | DRG 871 ==
LOC: SED 13:14 → STU 16:56
PROVIDERS: ADMIT Internal Medicine; ATTEND Internal Medicine
PROC: 30233N1 Transfusion of Nonautologous Red Blood Cells into Peripheral Vein, Percutaneous Approach (ICD-10-PCS; principal; 2022-04-23)
DX: A41.9 Sepsis, unspecified organism (principal); E43 Unspecified severe protein-calorie malnutrition; J69.0 Pneumonitis due to inhalation of food and vomit; J96.00 Acute respiratory failure, unspecified whether with hypoxia or hypercapnia; I13.0 Hypertensive heart and chronic kidney disease with heart failure and stage 1 through stage 4 chronic kidney disease, or unspecified chronic kidney disease; N17.9 Acute kidney failure, unspecified; E87.20 Acidosis, unspecified; N39.0 Urinary tract infection, site not specified; N18.4 Chronic kidney disease, stage 4 (severe); D63.1 Anemia in chronic kidney disease; E78.5 Hyperlipidemia, unspecified; I25.10 Atherosclerotic heart disease of native coronary artery without angina pectoris; M10.9 Gout, unspecified; E87.5 Hyperkalemia; E83.52 Hypercalcemia; E88.09 Other disorders of plasma-protein metabolism, not elsewhere classified; E11.65 Type 2 diabetes mellitus with hyperglycemia; R53.81 Other malaise; Z20.822 Contact with and (suspected) exposure to COVID-19; N40.0 Benign prostatic hyperplasia without lower urinary tract symptoms; I50.9 Heart failure, unspecified; E11.22 Type 2 diabetes mellitus with diabetic chronic kidney disease; Z95.1 Presence of aortocoronary bypass graft; Z79.01 Long term (current) use of anticoagulants; Z79.899 Other long term (current) drug therapy; Z68.20 Body mass index [BMI] 20.0-20.9, adult
CPT/HCPCS: 36415; 71045; 76770; 80053; 80162; 81000; 82150; 83605; 83690; 83735; 83880; 84100; 84484; 85025; 85610-TC; 85651-TC; 85730-TC; 86140; 86886; 86900; 86901; 86920; 87040; 87086; 92610-GN; 93005; 93306; 94640; 94760; 97110-GP; 97112-GP; 97163-GP; 97530-GP; 99285; G0378; J0696; J1160; J1940; J1956; J7060; P9021